=== PATIENT | male | born 1985 | race African-American/Black ===

== ENCOUNTER 2020-10-16 18:38 | Emergency (ER) | payer BC ==
[2020-10-16] MEDS ORDERED: HYDROcodone/Acetaminophen 5/325 mg Tablet ONE (19:37)
== END 2020-10-16 19:48 | disposition home or self-care (01) ==
LOC: NAV ERS 18:38
DX: K02.9 Dental caries, unspecified (principal); E66.9 Obesity, unspecified; F17.210 Nicotine dependence, cigarettes, uncomplicated
CPT/HCPCS: 99282